=== PATIENT | female | born 1990 | race African-American/Black ===

== ENCOUNTER 2017-09-14 17:03 | Emergency (ER) | payer MEDICAID ==
[~2017-09-14] VITALS: Ht 182.9 cm; Wt 136.0 kg
[2017-09-14 17:38] VITALS: BP 126/73
== END 2017-09-14 18:45 | disposition left against medical advice (07) ==
LOC: ER 18:36
DX: K08.89 Other specified disorders of teeth and supporting structures (principal); Z53.21 Procedure and treatment not carried out due to patient leaving prior to being seen by health care provider

== ENCOUNTER 2017-10-11 14:21 | Observation (INO) | payer MEDICAID ==
[~2017-10-11] VITALS: Ht 182.9 cm; Wt 137.0 kg
[2017-10-11 16:33] LABS: BASOPHILS % 0.3 % (0.0-2.0); EOSINOPHILS % 0.4 % (0.0-5.0); HEMATOCRIT. 35.3 % (36.0-48.0); HEMOGLOBIN. 12.1 g/dL (12.0-16.0); LYMPHOCYTES % 23.7 % (20.0-50.0); MEAN CORPUSCULAR HEMOGLOBIN 28.5 pg (28.0-32.0); MEAN CORPUSCULAR VOLUME 82.8 fL (81.0-99.0); MEAN PLATELET VOLUME 8.9 fl (7.4-10.4); MONOCYTES % 6.1 % (2.0-8.0); NEUTROPHILS % 69.5 % (40.0-76.0); PLATELET 225 x1000/uL (130-400); RED BLOOD CELL COUNT 4.26 mill/uL (4.2-5.4); RED CELL DISTRIBUTION WIDTH 15.4 % (11.6-14.6)
== END 2017-10-11 17:45 | disposition home or self-care (01) ==
LOC: L&D 14:21
PROVIDERS: ADMIT Obstetrics & Gynecology; ATTEND Obstetrics & Gynecology
DX: Z04.3 Encounter for examination and observation following other accident (principal); Z3A.35 35 weeks gestation of pregnancy
CPT/HCPCS: 36415; 76805; 76818; 85025; 86900; 86901; 87186; 99281; G0378

== ENCOUNTER 2017-11-23 01:12 | Emergency (ER) | payer MEDICAID ==
[~2017-11-23] VITALS: Ht 180.3 cm; Wt 145.0 kg
[2017-11-23 01:24] VITALS: BP 164/90
== END 2017-11-23 03:20 | disposition left against medical advice (07) ==
LOC: ER 01:12
DX: R10.9 Unspecified abdominal pain (principal); Z53.21 Procedure and treatment not carried out due to patient leaving prior to being seen by health care provider

== ENCOUNTER 2018-11-26 14:24 | Emergency (ER) | payer MEDICAID ==
[~2018-11-26] VITALS: Ht 185.4 cm; Wt 146.0 kg
[2018-11-26 14:58] VITALS: BP 117/79
== END 2018-11-26 19:59 | disposition left against medical advice (07) ==
LOC: ER 14:29
DX: Z53.21 Procedure and treatment not carried out due to patient leaving prior to being seen by health care provider (principal)

== ENCOUNTER 2019-07-11 13:34 | Emergency (ER) | payer MEDICAID ==
[~2019-07-11] VITALS: Ht 182.9 cm; Wt 145.8 kg
[2019-07-11 14:01] VITALS: BP 158/81
== END 2019-07-13 08:12 | disposition left against medical advice (07) ==
LOC: ER 07-13 07:42
DX: Z53.21 Procedure and treatment not carried out due to patient leaving prior to being seen by health care provider (principal)